=== PATIENT | female | born 2005 | race African-American/Black ===

== ENCOUNTER 2024-08-26 19:06 | Emergency (ER) | payer SELFPAY ==
[~2024-08-26] VITALS: Ht 157.5 cm; Wt 45.3 kg
[2024-08-26 19:11] VITALS: O2SAT 100
[2024-08-26] MEDS: ONDANSETRON 4MG ODT PO STA (20:55)
[2024-08-26] MEDS: MAGNESIUM/ALUMINUM HYDROXIDE/SIMETHICONE 30ML UDC PO STA (20:55)
[2024-08-26] MEDS: DICYCLOMINE 10 MG/5 ML ORAL SYR PO STA ×2 (20:56→22:23)
[2024-08-26] MEDS: DICYCLOMINE HCL 10MG CAPSULE PO NR (20:56)
[2024-08-26 21:19] LABS: BASOPHILS % 0.6 % (0.0-2.0); EOSINOPHILS % 0.1 % (0.0-5.0); HEMATOCRIT. 39.7 % (36.0-48.0); HEMOGLOBIN. 12.6 g/dL (12.0-16.0); LYMPHOCYTES % 15.7 % (20.0-50.0); MEAN CORPUSCULAR HEMOGLOBIN 26.7 pg (28.0-32.0); MEAN CORPUSCULAR HGB CONC 31.7 g/dL (31.0-37.0); MEAN CORPUSCULAR VOLUME 84.3 fL (81.0-99.0); MEAN PLATELET VOLUME 7.8 fl (7.4-10.4); MONOCYTES % 7.6 % (2.0-8.0); PLATELET 317 x1000/uL (130-400); RED BLOOD CELL COUNT 4.71 mill/uL (4.2-5.4); RED CELL DISTRIBUTION WIDTH 13.8 % (11.6-14.6); WHITE BLOOD COUNT 5.6 x1000/uL (4.5-11.0)
[2024-08-26 21:26] LABS: CARBON DIOXIDE 27 mEq/L (21-32); CHLORIDE 102 mEq/L (98-107); POTASSIUM 3.1 mEq/L (3.5-5.1); SODIUM 140 mEq/L (136-145)
[2024-08-26 21:27] LABS: CALCIUM 9.9 mg/dL (8.7-10.4)
[2024-08-26 21:32] LABS: CREATININE 0.7 mg/dL (0.6-1.0); GLUCOSE 114 mg/dL (70-105); UREA NITROGEN BLOOD 10 mg/dL (9-23)
[2024-08-26] MEDS ORDERED: ONDA-239 PO (22:32)
[2024-08-26] MEDS: ONDANSETRON HCL 4MG/2ML INJ IV STA (22:38)
[2024-08-26] MEDS: FAMOTIDINE 20MG/2ML VIAL IV STA (22:38)
[2024-08-26] MEDS: SODIUM CHLORIDE 0.9% 1,000 ML IV ONE (22:38)
[2024-08-26] MEDS: ACETAMINOPHEN 325MG TABLET PO ONE (23:54)
[2024-08-27 00:05] VITALS: BP 137/82; PULSE 89; RESP 20; TEMP 36.8; O2SAT 100
[2024-08-27 00:42] LABS: CLARITY URINE CLEAR (CLEAR); COLOR URINE YELLOW (YELLOW); GLUCOSE URINE NEGATIVE (NEGATIVE); KETONES URINE 2+ (NEGATIVE); LEUKOCYTE ESTERASE URINE NEGATIVE (NEGATIVE); NITRITE URINE NEGATIVE (NEGATIVE); OCCULT BLOOD URINE 3+ (NEGATIVE); PROTEIN URINE 2+ (NEGATIVE); SPECIFIC GRAVITY URINE 1.041 (1.005-1.030)
[2024-08-27 01:59] LABS: MUCUS URINE 2+ /lpf (< = 2+); SQUAMOUS EPITHELIAL CELL URINE 2+ /lpf (RARE/1+)
[2024-08-27 02:01] LABS: AMORPHOUS SEDIMENT URINE 1+ /lpf; BACTERIA URINE 1+
== END 2024-08-27 00:06 | disposition home or self-care (01) ==
LOC: ER 19:06
DX: R11.2 Nausea with vomiting, unspecified (principal); R10.9 Unspecified abdominal pain
CPT/HCPCS: 80048; 81003; 83690; 85025; 36415; 76700; 96361; 96374; 96375; 99285; 81025; Q0162; J3490; J2405; J7030; Z7610